=== PATIENT | male | born 1955 ===

== ENCOUNTER 2023-05-06 07:29 | Day surgery (SDC) | payer MEDICARE ==
[~2023-05-06] VITALS: Ht 177.8 cm; Wt 102.4 kg
[2023-05-06] MEDS ORDERED: TIZA4 (07:52)
[2023-05-06] MEDS ORDERED: CELE200 (07:52)
[2023-05-06] MEDS ORDERED: SUDOGEST (07:52)
[2023-05-06] MEDS ORDERED: ALLEGRA ALLERG180 MG (07:53)
[2023-05-06] MEDS ORDERED: Amaryl1 MG (07:53)
[2023-05-06] MEDS ORDERED: Flonase 0.05% N16 GM (07:53)
[2023-05-06] MEDS ORDERED: METF500 (07:53)
[2023-05-06] MEDS ORDERED: VALS80 (07:54)
[2023-05-06 09:58] VITALS: BP 150/89
--- NOTE | 2023-05-06 10:00 | NUR ---
05/06/23 Ros Carbajal IV WNLise, PT TOW.
== END 2023-05-06 10:07 | disposition home or self-care (01) ==
LOC: ORSCSDS 07:29
PROVIDERS: Surgery
PROC: 0DBE8ZX Excision of Large Intestine, Via Natural or Artificial Opening Endoscopic, Diagnostic (ICD-10-PCS; principal; 2023-05-06 08:45)
PROC: 0DBN8ZX Excision of Sigmoid Colon, Via Natural or Artificial Opening Endoscopic, Diagnostic (ICD-10-PCS; principal; 2023-05-06 08:45)
PROC: 0DBP8ZX Excision of Rectum, Via Natural or Artificial Opening Endoscopic, Diagnostic (ICD-10-PCS; principal; 2023-05-06 08:45)
DX: R10.9 Unspecified abdominal pain (principal); K63.5 Polyp of colon; K62.1 Rectal polyp; K57.30 Diverticulosis of large intestine without perforation or abscess without bleeding; R19.7 Diarrhea, unspecified; E11.9 Type 2 diabetes mellitus without complications; E78.5 Hyperlipidemia, unspecified; Z87.891 Personal history of nicotine dependence; Z79.84 Long term (current) use of oral hypoglycemic drugs; Z79.899 Other long term (current) drug therapy
CPT/HCPCS: 82947; 88305; J2704; J7120

== ENCOUNTER → 2023-12-24 | Outpatient (CLI) | payer OTHER ==
[~2023-12-24] MED LIST: ALLEGRA ALLERG180 MG; Amaryl1 MG; CELE200; Flonase 0.05% N16 GM; METF500; SUDOGEST; TIZA4; VALS80
== END | disposition home or self-care (01) ==
LOC: LAB 15:50 → LAB SHORT 15:50
DX: R35.0 Frequency of micturition (principal)
CPT/HCPCS: 87086

== ENCOUNTER 2024-06-15 06:17 | Day surgery (SDC) | payer OTHER ==
[~2024-06-15] VITALS: Ht 180.3 cm; Wt 102.4 kg
[~2024-06-15 06:17] MED LIST changes: +ASPIR 8181 M1 PO; +Amaryl1 MG PO; -CELE200; +CELE200 PO; +Crestor40 MG PO; +Diovan160 MG PO; +FLONASE ALLERG9.9 ML INH; +JARDIANCE25 MG PO; +METF500C; +PIOG30 PO; +TIZA4 PO; +Viagra100 MG PO
[2024-06-15] MEDS ORDERED: NS 50 ML IV ONE (06:34)
[2024-06-15] MEDS ORDERED: CeFAZolin Sodium 2,000 MG VIAL ONE (06:34)
[2024-06-15] MEDS ORDERED: Lactated Ringer's 1,000 ML IV ONE ×3 (06:35→09:41)
[2024-06-15] MEDS ORDERED: Rocuronium Bromide 10 MG/ML 5ML Injection IV ONE (07:25)
[2024-06-15] MEDS ORDERED: propofoL 20 ML IV ONE (07:25)
[2024-06-15] MEDS ORDERED: FentaNYL Citrate 50 MCG/ML 2 ML Injection ONE ×2 (07:25→09:28)
[2024-06-15] MEDS ORDERED: Midazolam HCl 1MG / ML 2ML Vial ONE (07:25)
[2024-06-15] MEDS ORDERED: Ketorolac Tromethamine 30mg Vial ONE (07:59)
[2024-06-15] MEDS ORDERED: Ondansetron HCl 2 MG / ML 2ML Vial ONE (07:59)
[2024-06-15] MEDS ORDERED: Dexamethasone Sod Phos 10 MG/ML 1ML VIAL ONE (07:59)
[2024-06-15] MEDS ORDERED: Sugammadex Sodium 200 MG/2ML SDV (100 MG/ML) ONE (08:00)
[2024-06-15] MEDS ORDERED: Bupivacaine 0.5% HCl 5 MG/ML 30MLVIAL INJ ONE (08:07)
[2024-06-15 09:12] VITALS: BP 142/80
--- NOTE | 2024-06-15 09:44 | NUR ---
06/15/24 0944 Huma Mcguire PT. VERBALIZES PAIN NOW A "2" FROM A "5". PT. DENIES NEEDING ANY MORE PAIN MEDICATION AT THIS TIME.
== END 2024-06-15 10:20 | disposition home or self-care (01) ==
LOC: ORSCSDS 06:17
PROVIDERS: Surgery
PROC: 0WUF0JZ Supplement Abdominal Wall with Synthetic Substitute, Open Approach (ICD-10-PCS; principal; 2024-06-15 08:00)
DX: K42.9 Umbilical hernia without obstruction or gangrene (principal); I10 Essential (primary) hypertension; E11.9 Type 2 diabetes mellitus without complications; E66.9 Obesity, unspecified; Z68.31 Body mass index [BMI] 31.0-31.9, adult; E78.5 Hyperlipidemia, unspecified; Z79.84 Long term (current) use of oral hypoglycemic drugs; Z79.899 Other long term (current) drug therapy; Z87.891 Personal history of nicotine dependence
CPT/HCPCS: 82947; C1781; J0690; J1100; J1885; J2250; J2405; J2704; J3010; J7120

== ENCOUNTER 2024-10-31 07:09 | Day surgery (SDC) | payer OTHER ==
[~2024-10-31] VITALS: Ht 177.8 cm; Wt 105.2 kg
[~2024-10-31 07:09] MED LIST changes: +Balanced Salt Epinephrine Irrigation Solution 500 mL IR SCH; +Lidocaine HCl/Pf 1% 5 ML VIAL XX SCH; +Moxifloxacin HCL 0.5 MG/0.1 ML 0.4MLSYR LEFTEYE SCH; +PHENYLEPHRINE\\TROPICAMIDE\\TETRACAINE OPHTHALMIC DILATING SOLN LEFTEYE PRN; +Povidone-Iodine 450 DROP/30 ML Solution LEFTEYE SCH; +Povidone-Iodine 450 DROP/30 ML Solution ONE; +Tetracaine HCl/Pf 0.5% Opth Soln 4 ml ONE
[2024-10-31] MEDS ORDERED: NS 500 ML IV ONE ×2 (07:22→07:43)
[2024-10-31] MEDS ORDERED: TRAM50 PO (07:26)
[2024-10-31] MEDS ORDERED: FentaNYL Citrate 50 MCG/ML 2 ML Injection ONE (08:24)
[2024-10-31] MEDS ORDERED: Midazolam HCl 1MG / ML 2ML Vial ONE (08:24)
[2024-10-31 08:45] VITALS: BP 136/82
== END 2024-10-31 08:59 | disposition home or self-care (01) ==
LOC: ORSCSDS 07:09
PROVIDERS: Student in an Organized Health Care Education/Training Program
PROC: 08RK3JZ Replacement of Left Lens with Synthetic Substitute, Percutaneous Approach (ICD-10-PCS; principal; 2024-10-31 08:30)
DX: H25.813 Combined forms of age-related cataract, bilateral (principal); I10 Essential (primary) hypertension; E78.5 Hyperlipidemia, unspecified; E11.9 Type 2 diabetes mellitus without complications; N40.0 Benign prostatic hyperplasia without lower urinary tract symptoms; E66.9 Obesity, unspecified; Z68.32 Body mass index [BMI] 32.0-32.9, adult; Z87.891 Personal history of nicotine dependence; Z79.84 Long term (current) use of oral hypoglycemic drugs; Z79.899 Other long term (current) drug therapy; Z79.85 Long-term (current) use of injectable non-insulin antidiabetic drugs
CPT/HCPCS: 82947; J2250; J3010; J7040; V2632

== ENCOUNTER 2024-11-14 07:13 | Day surgery (SDC) | payer OTHER ==
[~2024-11-14] VITALS: Ht 177.8 cm; Wt 104.5 kg
[~2024-11-14 07:13] MED LIST changes: +Midazolam HCl 1MG / ML 2ML Vial ONE; -Moxifloxacin HCL 0.5 MG/0.1 ML 0.4MLSYR LEFTEYE SCH; +Moxifloxacin HCL 0.5 MG/0.1 ML 0.4MLSYR RIGHTEYE SCH; -PHENYLEPHRINE\\TROPICAMIDE\\TETRACAINE OPHTHALMIC DILATING SOLN LEFTEYE PRN; +PHENYLEPHRINE\\TROPICAMIDE\\TETRACAINE OPHTHALMIC DILATING SOLN RIGHTEYE PRN; -Povidone-Iodine 450 DROP/30 ML Solution LEFTEYE SCH; +Povidone-Iodine 450 DROP/30 ML Solution RIGHTEYE SCH; +TRAM50 PO
--- NOTE | 2024-11-14 07:42 | NUR ---
11/14/24 0742 Stanford Hung CALL LIGHT WITHIN REACH. TETRACAINE IN RIGHT EYE AT 0737 AND PLEDGETT IN AT 0738.
[2024-11-14] MEDS ORDERED: FentaNYL Citrate 50 MCG/ML 2 ML Injection ONE (07:54)
[2024-11-14 08:31] VITALS: BP 118/81
== END 2024-11-14 08:39 | disposition home or self-care (01) ==
LOC: ORSCSDS 07:13
PROVIDERS: Student in an Organized Health Care Education/Training Program
PROC: 08RJ3JZ Replacement of Right Lens with Synthetic Substitute, Percutaneous Approach (ICD-10-PCS; principal; 2024-11-14 08:30)
DX: E11.36 Type 2 diabetes mellitus with diabetic cataract (principal); H25.811 Combined forms of age-related cataract, right eye; Z96.1 Presence of intraocular lens; I10 Essential (primary) hypertension; G47.33 Obstructive sleep apnea (adult) (pediatric); Z87.891 Personal history of nicotine dependence; E78.5 Hyperlipidemia, unspecified; Z79.84 Long term (current) use of oral hypoglycemic drugs; Z79.899 Other long term (current) drug therapy
CPT/HCPCS: 82947; J2250; J3010; V2632